=== PATIENT | male | born 1960 | race Caucasian/White ===

== ENCOUNTER → 2019-02-23 10:24 | Outpatient (CLI) | payer BC, SELFPAY ==
[2019-02-23 10:34] LABS: Bacteria Urine None Seen; WBC Urine None Seen (0-5/HPF)
[2019-02-23 11:02] LABS: Add Manual Diff / Slide Review NO; Basophils Absolute Auto 100 /uL (0-100); Basophils Percent Auto 1.2 % (0-2); Eosinophils Absolute Auto 200 /uL (0-450); Eosinophils Percent Auto 3.1 % (2-4); Hematocrit 46.6 % (41-53); Hemoglobin 15.9 g/dL (13.5-17.5); Lymphocytes Absolute Auto 1500 /uL (1100-4500); Lymphocytes Percent Auto 30.8 % (25-40); Mean Corpuscular HGB Conc 34.2 % (30-36); Mean Corpuscular Hemoglobin 30.3 PG (26-34); Mean Corpuscular Volume 88.5 fL (80-100); Monocytes Absolute Auto 600 /uL (0-900); Monocytes Percent Auto 11.9 % (3-14); Neutrophils Absolute Auto 2600 /uL (1500-7000); Platelet Count 326 X10^3/uL (150-400); Red Blood Cell Count 5.26 X10^6/uL (4.5-5.9); White Blood Cell Count 4.9 X10^3/uL (4.5-11.0)
[2019-02-23 11:08] LABS: Appearance Urine UA CLEAR; Bilirubin Urine UA NEGATIVE (NEGATIVE); Color Urine UA YELLOW; Glucose Urine UA NEGATIVE (Negative); Ketones Urine UA NEGATIVE (NEGATIVE); Leukocyte Esterase Urine UA NEGATIVE (NEGATIVE); Nitrite Urine UA NEGATIVE (Negative); Occult Blood Urine UA TRACE-LYSED (Negative); Protein Urine UA NEGATIVE (Negative); Specific Gravity Urine UA >=1.030 (1.000-1.035); Urobilinogen Urine UA 0.2 E.U./dL (0.2)
[2019-02-23 11:15] LABS: Alanine Aminotransferase 37 IU/L (21-72); Albumin 4.7 g/dL (3.5-5.0); Albumin Globulin Ratio 1.6 (1.0-2.8); Alkaline Phosphatase 68 U/L (38-126); Aspartate Aminotransferase 32 IU/L (17-59); Bilirubin Total 0.6 mg/dL (0.2-1.3); Blood Urea Nitrogen 16 mg/dL (9-20); Calcium 9.5 mg/dL (8.4-10.2); Carbon Dioxide 28 mmol/L (22-32); Chloride 105 mmol/L (98-107); Cholesterol 179 mg/dL (140-199); Estimated Glomerular Filt Rate > 60.0 mL/min (>60); Globulin 2.9 g/dL (1.7-4.1); Glucose 111 mg/dL (70-100); HDL Cholesterol 34 mg/dL (40-60); HEMOLYSIS < 15 (0-50); LDL Cholesterol Calculated 104 mg/dL (<100); Potassium 4.5 mmol/L (3.4-5.1); Sodium 143 mmol/L (137-145); Total Protein 7.6 g/dL (6.3-8.2); Triglycerides 207 mg/dL (35-150)
[2019-02-23 11:20] LABS: RBC Urine 5-10/HPF (0-5/HPF)
[2019-02-23 11:43] LABS: Prostate Specific Antigen 1.03 ng/mL (0.10-4.00)
[2019-02-23 11:50] LABS: Thyroid Stimulating Hormone 1.62 uIU/mL (0.47-4.68)
[2019-02-27 13:39] LABS: Lamotrigine Lamictal 7.7 mcg/mL (4.0-18.0)
== END ==
PROVIDERS: PCP Internal Medicine; Visit Provider Internal Medicine
DX: N41.1 Chronic prostatitis (principal); R56.9 Unspecified convulsions; N40.1 Benign prostatic hyperplasia with lower urinary tract symptoms; Z00.00 Encounter for general adult medical examination without abnormal findings
CPT/HCPCS: 36415; 80053; 80061; 80175; 81001; 84153; 84443; 85025

== ENCOUNTER → 2019-05-31 09:38 | Outpatient (CLI) | payer BC, SELFPAY ==
--- NOTE | 2019-05-31 09:54 | DI.CT.S_ITS ---
PROCEDURE: CT ABDOMEN PELVIS WO/W CON INDICATIONS: Hematuria, unspecified TECHNIQUE: Optional 5 mm thick noncontrast images acquired from the diaphragm to the symphysis pubis. After the administration of intravenous contrast, 5 mm thick images acquired from the diaphragm to the symphysis pubis after a 10-minute delay. 2 mm thick coronal and sagittal reformats were then performed of the kidneys and ureters. For radiation dose reduction, the following was used: automated exposure control, adjustment of mA and/or kV according to patient size. COMPARISON: None. FINDINGS: Image quality: Excellent. Lung bases: Lung bases are clear. Heart size is normal. Urinary system: Both kidneys are normal in size, without hydronephrosis or nephrolithiasis on pre-contrast images. No perinephric fat stranding. There is normal bilateral renal enhancement. Renal calyces appear normal in morphology when filled with contrast. Opacified portions of both ureters demonstrate normal caliber. Bladder wall thickness is normal. No calcified bladder stones. Other solid organs: Liver is normal in size and enhancement. Gallbladder demonstrates mild wall thickening at the fundus and multiple tiny foci of intraluminal high density along the fundus. Biliary system is non dilated. Pancreas enhances normally. Spleen is normal in size and enhancement. No adrenal nodules. Peritoneum and bowel: Bowel loops demonstrate normal wall thickness and caliber. No free fluid or air. Nodes and vessels: No retroperitoneal or mesenteric adenopathy by size criteria. Aorta and inferior vena cava are normal in size. Abdominal wall: No ventral hernias. Pelvis: No pathologic free pelvic fluid. No inguinal hernias or adenopathy. Prostate gland size is at the upper limits of normal measuring about 3.7 x 3.6 x 3.9 cm and contains a few coarse calcifications. Very small bilateral scrotal hydroceles. Bones: No suspicious bony lesions. Disc height loss at L4-5 and L5-S1. No vertebral body compression fractures. IMPRESSION: 1. No evidence of renal, ureteral, or bladder lesion. 2. Prostate gland size at the upper limits of normal. 3. Incidental note made of gallbladder wall thickening and tiny polypoid intraluminal lesions along the fundus which may represent gallbladder polyps, adenomyomatosis, or adherent stones. Correlate clinically and consider upper quadrant ultrasound for further evaluation. 4. Degenerative disc disease in lower lumbar spine. Dictated by: Adamaris Bullokc M.D. on 05/31/2019 at 13:33 Approved by: Adamaris Bullock M.D. on 05/31/2019 at 13:42
== END ==
PROVIDERS: PCP Internal Medicine; Visit Provider Specialist
DX: R31.9 Hematuria, unspecified (principal); M51.36 Other intervertebral disc degeneration, lumbar region
CPT/HCPCS: 74178; Q9967

== ENCOUNTER → 2019-07-09 16:38 | Outpatient (CLI) | payer BC, SELFPAY ==
[2019-07-09 18:10] LABS: BUN Creatinine Ratio 15.5 (6-22); Blood Urea Nitrogen 17 mg/dL (9-20); Calcium 10.2 mg/dL (8.4-10.2); Carbon Dioxide 30 mmol/L (22-32); Chloride 102 mmol/L (98-107); Estimated Glomerular Filt Rate > 60.0 mL/min (>60); Glucose 91 mg/dL (70-100); HEMOLYSIS < 15 (0-50); Sodium 142 mmol/L (137-145)
[2019-07-09 18:40] LABS: Prostate Specific Antigen 1.52 ng/mL (0.10-4.00)
== END ==
PROVIDERS: PCP Internal Medicine; Visit Provider Specialist
DX: R31.9 Hematuria, unspecified (principal)
CPT/HCPCS: 36415; 80048; 84153

== ENCOUNTER → 2020-03-27 08:05 | Outpatient (CLI) | payer BC, SELFPAY ==
--- NOTE | 2020-03-27 | DI.US.S_ITS ---
PROCEDURE: US ABDOMEN LIMITED INDICATIONS: INC FND ON CT TECHNIQUE: Real-time focused scanning was performed of the abdomen, with image documentation. COMPARISON: [facility], CT, CT ABDOMEN PELVIS WO/W CON, 05/31/2019, 9:46. FINDINGS: Study targeted at clinician request to assess the gallbladder given recent CT findings suggestive of possible polyps. The current study shows gallbladder wall thickness averaging approximately 4 mm, mildly thickened. Polyps are seen within the gallbladder lumen, multiple, the largest 2 at the anterior gallbladder wall measuring up to 4 x 6 x 6 mm and 6 x 6 x 7 mm. A small region of presumed adenomyomatosis is present at the gallbladder fundus. IMPRESSION: The gallbladder lumen contains mucosal polyps, the largest of which measures up to 6 x 6 x 7 mm. There is a risk of malignant degeneration of gallbladder polyps, insert circumstances. A gallbladder polyp larger than 6 mm in diameter is a factor reported in review articles on gallbladder polyp risk factors for malignant degeneration. In this patient of age 60 surgical consultation likely is warranted. Dictated by: Torey Andrews M.D. on 03/27/2020 at 9:17 Approved by: Torey Andrews M.D. on 03/27/2020 at 9:29
== END ==
PROVIDERS: PCP Internal Medicine; Referring Provider Internal Medicine; Visit Provider Internal Medicine
DX: K82.4 Cholesterolosis of gallbladder (principal); N40.1 Benign prostatic hyperplasia with lower urinary tract symptoms
CPT/HCPCS: 76705

== ENCOUNTER → 2020-11-03 09:30 | Outpatient (CLI) | payer BC, SELFPAY ==
[2020-11-03 09:57] LABS: Bacteria Urine None Seen; WBC Urine None Seen (0-5/HPF)
[2020-11-03 10:38] LABS: Add Manual Diff / Slide Review NO; Basophils Absolute Auto 100 /uL (0-100); Basophils Percent Auto 1.1 % (0-2); Eosinophils Absolute Auto 200 /uL (0-450); Eosinophils Percent Auto 2.7 % (2-4); Hematocrit 43.3 % (41-53); Lymphocytes Absolute Auto 1600 /uL (1100-4500); Lymphocytes Percent Auto 27.7 % (25-40); Mean Corpuscular HGB Conc 34.6 % (30-36); Mean Corpuscular Hemoglobin 30.5 PG (26-34); Mean Corpuscular Volume 88.1 fL (80-100); Monocytes Absolute Auto 600 /uL (0-900); Monocytes Percent Auto 10.3 % (3-14); Neutrophils Absolute Auto 3300 /uL (1500-7000); Neutrophils Percent Auto 58.2 % (50-75); Platelet Count 339 X10^3/uL (150-400); Red Blood Cell Count 4.92 X10^6/uL (4.5-5.9); Red Cell Distribution Width 12.8 % (11.6-14.8); White Blood Cell Count 5.6 X10^3/uL (4.5-11.0)
[2020-11-03 10:44] LABS: Appearance Urine UA CLEAR; Bilirubin Urine UA NEGATIVE (NEGATIVE); Color Urine UA YELLOW; Glucose Urine UA NEGATIVE (Negative); Ketones Urine UA NEGATIVE (NEGATIVE); Leukocyte Esterase Urine UA NEGATIVE (NEGATIVE); Nitrite Urine UA NEGATIVE (Negative); Occult Blood Urine UA TRACE-LYSED (Negative); Protein Urine UA NEGATIVE (Negative); Specific Gravity Urine UA >=1.030 (1.000-1.035); Urobilinogen Urine UA 0.2 E.U./dL (0.2)
[2020-11-03 11:27] LABS: Culture Indicated Urine Cult Not Indicated; RBC Urine 1-5/HPF (0-5/HPF)
[2020-11-03 11:28] LABS: Alanine Aminotransferase 29 IU/L (<50); Albumin 4.5 g/dL (3.5-5.0); Albumin Globulin Ratio 1.6 (1.0-2.8); Alkaline Phosphatase 76 U/L (38-126); Aspartate Aminotransferase 24 IU/L (17-59); BUN Creatinine Ratio 15.9 (6-22); Bilirubin Total 0.2 mg/dL (0.2-1.3); Blood Urea Nitrogen 17 mg/dL (9-20); Calcium 9.4 mg/dL (8.4-10.2); Carbon Dioxide 29 mmol/L (22-32); Chloride 106 mmol/L (98-107); Cholesterol 172 mg/dL (140-199); Estimated Glomerular Filt Rate > 60.0 mL/min (>60); Globulin 2.8 g/dL (1.7-4.1); Glucose 115 mg/dL (70-100); HDL Cholesterol 32 mg/dL (40-60); HEMOLYSIS < 15 (0-50); LDL Cholesterol Calculated 110 mg/dL (<100); Potassium 4.5 mmol/L (3.4-5.1); Sodium 142 mmol/L (137-145); Total Protein 7.3 g/dL (6.3-8.2); Triglycerides 150 mg/dL (35-150)
[2020-11-03 11:58] LABS: Prostate Specific Antigen Scrn 1.97 ng/mL (0.1-4.0)
[2020-11-05 16:54] LABS: Hemoglobin A1C% w Est Avg Glu 5.2 % (4.0-6.0)
== END ==
PROVIDERS: PCP Physician Assistant; Referring Provider Physician Assistant; Visit Provider Physician Assistant
DX: Z00.00 Encounter for general adult medical examination without abnormal findings (principal); Z12.5 Encounter for screening for malignant neoplasm of prostate
CPT/HCPCS: 80053; 80061; 81001; 83036; 85025; G0103

== ENCOUNTER → 2022-07-26 15:33 | Outpatient (CLI) | payer BC, SELFPAY ==
[2022-07-26 16:59] LABS: Prostate Specific Antigen 2.73 ng/mL (0.10-4.00)
== END ==
PROVIDERS: PCP Physician Assistant; Referring Provider Specialist; Visit Provider Specialist
DX: N13.8 Other obstructive and reflux uropathy (principal); N40.1 Benign prostatic hyperplasia with lower urinary tract symptoms
CPT/HCPCS: 36415; 84153

== ENCOUNTER → 2022-10-27 16:47 | Outpatient (CLI) | payer BC, SELFPAY ==
[2022-10-27 18:09] LABS: Prostate Specific Antigen 3.15 ng/mL (0.10-4.00)
== END ==
PROVIDERS: PCP Physician Assistant; Referring Provider Specialist; Visit Provider Specialist
DX: N13.8 Other obstructive and reflux uropathy (principal); N40.1 Benign prostatic hyperplasia with lower urinary tract symptoms
CPT/HCPCS: 36415; 84153

== ENCOUNTER → 2022-12-21 16:28 | Outpatient (CLI) | payer OTHER, SELFPAY ==
[2022-12-21 19:14] LABS: Prostate Specific Antigen 2.81 ng/mL (0.10-4.00)
== END ==
PROVIDERS: PCP Physician Assistant; Referring Provider Specialist; Visit Provider Specialist
DX: N40.1 Benign prostatic hyperplasia with lower urinary tract symptoms (principal); N13.8 Other obstructive and reflux uropathy
CPT/HCPCS: 36415; 84153

== ENCOUNTER 2022-12-23 11:20 | Day surgery (SDC) | payer OTHER, SELFPAY ==
[2022-12-23 11:37] VITALS: BP 145/91; PULSE 95; RESP 16; TEMP 36.2; O2SAT 98; BMI 25.7
[2022-12-23] MEDS: LACTATED RINGERS 1,000 ML 84 ML IV (11:52)
--- NOTE | 2022-12-23 12:13 | PM.HP.1 ---
History of Present Illness History of Present Illness Date Patient Seen: 12/23/22 Time Patient Seen: 12:14 Chief complaint: Screening Colonoscopy Narrative: Mr. Kennedy presents today for a screening colonoscopy. Was last colonoscopy was 10 years ago he can not remember if he had polyps or not he thinks that perhaps it was done in [place]. He has no family history of colon cancer in no concerning symptoms. He has no questions. PFSH Medical History BPH w urinary obs/LUTS Seizure disorder Surgical History History of cholecystectomy Hx of circumcision Hx of vasectomy Social History household members: spouse Smoking Status: Former smoker alcohol intake: never Meds Home Medications and Allergies Home Medications Medication Instructions Recorded Confirmed Type doxepin 4 mg PO 06/22/21 11/02/22 History lamotrigine 150 mg tablet 150 mg PO TID 06/22/21 12/23/22 History lamotrigine 25 mg tablet 25 mg PO TID 06/22/21 12/23/22 History tamsulosin 0.4 mg capsule 0.8 mg PO BEDTIME #180 caps 11/02/22 12/23/22 Rx Allergies Allergy/AdvReac Type Severity Reaction Status Date / Time donepezil Allergy Unknown Verified 12/23/22 11:31 levetiracetam [From Keppra] Allergy Unknown Verified 12/23/22 11:31 Exam Vital Signs (past 8 hours): - 12/23/22 11:37 Temperature 97.2 F L Pulse Rate 95 H Respiratory Rate 16 Blood Pressure 145/91 H Pulse Oximetry 98 Oxygen Delivery Method Room Air Oxygen Delivery Method Room Air Const General: cooperative, healthy appearing and comfortable Eyes General: appearance normal, both eyes and all related structures Resp Effort & Inspection: normal respiratory effort and able to speak in complete sentences GI Palpation: soft and No tender Assessment & Plan Assessment and plan (1) Colon cancer screening: Status: Acute Assessment & Plan narrative: Presents today for screening colonoscopy I discussed the risks benefits and alternatives including but not limited to perforation of the colon and an incomplete exam he fully understands these risks and would like to proceed.
[2022-12-23 12:55] VITALS: BP 95/67; PULSE 82; RESP 18; TEMP 36.3; O2SAT 93
[2022-12-23 13:00] VITALS: BP 95/67; PULSE 70; RESP 13; O2SAT 94
[2022-12-23 13:05] VITALS: BP 99/69; PULSE 66; RESP 12; O2SAT 96
--- NOTE | 2022-12-23 13:09 | P.OP.COLON_ITS ---
Operative Date/Time/Diagnoses Date of procedure: 12/23/22 Time of procedure: 13:09 Pre-op diagnosis: Colon cancer screening Procedure & Clinicians Study performed: Colonoscopy Indications: 10 year follow-up Surgeon: Yaneth Heller Procedure Notes Procedure in detail: Patient was taken to the endoscopy suite and placed in a left lateral decubitus position. With the help of an anesthesiologist conscious sedation was induced and maintained throughout the procedure. A time-out was performed. Digital rectal exam was performed there were no masses or strictures. The colonoscope was then introduced into the anal canal and advanced through to the cecum. A photograph was obtained of the appendiceal orifice. The colonoscope was then withdrawn slowly for the course of 12 minutes. Some photographs of scattered sigmoid diverticula were obtained. The prep was good Scotts bowel prep score of 2. The scope was retroflexed and the hemorrhoidal piles were photographed. Patient tolerated the procedure well and went in good condition to the postoperative care unit. No polyps were seen. Specimen(s): none sent Complications: none Post-procedure Recommendations: Colonoscopy in 10 years Plan for aftercare: Unless there is a change in family history or he develops symptoms he can follow up in 10 years. Recommendations for fiber supplementation because of diverticula and follow-up were discussed with Romelia on the phone.
[2022-12-23 13:10] VITALS: BP 124/79; PULSE 67; RESP 16; TEMP 36.4; O2SAT 97
[2022-12-23 13:25] VITALS: BP 125/79; PULSE 64; RESP 14; TEMP 36.4; O2SAT 98
== END 2022-12-23 13:27 | disposition home or self-care (01) ==
PROVIDERS: PCP Physician Assistant; Referring Provider Surgery; Visit Provider Surgery
PROC: 0DJD8ZZ Inspection of Lower Intestinal Tract, Via Natural or Artificial Opening Endoscopic (ICD-10-PCS; CPT 45378; principal; 2022-12-23 12:30)
DX: Z12.11 Encounter for screening for malignant neoplasm of colon (principal); K57.30 Diverticulosis of large intestine without perforation or abscess without bleeding
CPT/HCPCS: 45378; J2704

== ENCOUNTER → 2023-06-21 16:12 | Outpatient (CLI) | payer OTHER, SELFPAY ==
[2023-06-21 19:22] LABS: Prostate Specific Antigen 2.82 ng/mL (0.10-4.00)
== END ==
PROVIDERS: PCP Physician Assistant; Referring Provider Specialist; Visit Provider Specialist
DX: N40.1 Benign prostatic hyperplasia with lower urinary tract symptoms (principal); N13.8 Other obstructive and reflux uropathy
CPT/HCPCS: 36415; 84153

== ENCOUNTER → 2024-06-21 14:01 | Outpatient (CLI) | payer OTHER, SELFPAY ==
[2024-06-21 15:55] LABS: Prostate Specific Antigen 3.89 ng/mL (0.10-4.00)
== END ==
PROVIDERS: PCP Physician Assistant; Referring Provider Urology; Visit Provider Urology
DX: R97.20 Elevated prostate specific antigen [PSA] (principal)
CPT/HCPCS: 36415; 84153

== ENCOUNTER → 2024-06-27 15:56 | Outpatient (CLI) | payer OTHER, SELFPAY | LOC: LAB 15:57 | PROVIDERS: PCP Physician Assistant; Referring Provider Internal Medicine; Visit Provider Internal Medicine | DX: G40.109 Localization-related (focal) (partial) symptomatic epilepsy and epileptic syndromes with simple partial seizures, not intractable, without status epilepticus (principal) | CPT/HCPCS: 36415; 80175 ==

== ENCOUNTER → 2025-02-12 16:14 | Outpatient (CLI) | payer OTHER, SELFPAY ==
[2025-02-16 14:07] LABS: Lamotrigine Lamictal 11.4 ug/mL (2.0-20.0)
== END ==
LOC: LAB 16:17
PROVIDERS: PCP Physician Assistant; Referring Provider Psychiatry & Neurology Neurology; Visit Provider Psychiatry & Neurology Neurology
DX: Z51.81 Encounter for therapeutic drug level monitoring (principal)
CPT/HCPCS: 36415; 80175